=== PATIENT | female | born 1980 | race Caucasian/White ===

== ENCOUNTER 2019-05-22 19:07 | Emergency (ER) | payer OTHER ==
[~2019-05-22] VITALS: Ht 154.9 cm; Wt 58.5 kg
[2019-05-22] MEDS ORDERED: SINGULAIR 10MG10 MG (19:24)
[2019-05-22] MEDS ORDERED: OBSTETRIX DHA1 EACH (19:24)
[2019-05-22] MEDS ORDERED: CLARITIN10 M1 (19:24)
[2019-05-22] MEDS ORDERED: XOPENEX0.63 MG/3 (19:25)
[2019-05-22] MEDS ORDERED: PROVENTIL HFA6.7 GM (19:25)
== END 2019-05-22 22:42 | disposition home or self-care (01) ==
LOC: ER 19:07 → EDBD 19:08 → ER 22:42
DX: O26.892 Other specified pregnancy related conditions, second trimester (principal); R10.2 Pelvic and perineal pain; Z34.02 Encounter for supervision of normal first pregnancy, second trimester

== ENCOUNTER 2019-10-18 09:50 | Inpatient (IN) | payer OTHER ==
[~2019-10-18] VITALS: Ht 154.9 cm; Wt 72.6 kg
[~2019-10-18 09:50] MED LIST: CLARITIN10 M1; OBSTETRIX DHA1 EACH; PROVENTIL HFA6.7 GM; SINGULAIR 10MG10 MG; XOPENEX0.63 MG/3
[2019-11-10] MEDS ORDERED: NEXIUM20 M1 PO (15:39)
== END 2019-11-13 15:03 | disposition home or self-care (01) | DRG 807 ==
LOC: LDR 11-10 15:21 → OB/GYN 11-11 22:38
PROVIDERS: ADMIT Obstetrics & Gynecology Maternal & Fetal Medicine
PROC: 3E0P7VZ Introduction of Hormone into Female Reproductive, Via Natural or Artificial Opening (ICD-10-PCS; 2019-11-10)
PROC: 4A1HXCZ Monitoring of Products of Conception, Cardiac Rate, External Approach (ICD-10-PCS; 2019-11-10)
PROC: 10E0XZZ Delivery of Products of Conception, External Approach (ICD-10-PCS; principal; 2019-11-11)
PROC: 0KQM0ZZ Repair Perineum Muscle, Open Approach (ICD-10-PCS; 2019-11-11)
PROC: 3E033VJ Introduction of Other Hormone into Peripheral Vein, Percutaneous Approach (ICD-10-PCS; 2019-11-11)
DX: O70.1 Second degree perineal laceration during delivery (principal); Z37.0 Single live birth; Z3A.39 39 weeks gestation of pregnancy; Z22.330 Carrier of Group B streptococcus

== ENCOUNTER 2019-10-31 11:10 | Outpatient (CLI) | payer OTHER | END 2019-10-31 12:03 | disposition home or self-care (01) | LOC: NST 11:10 | DX: Z34.83 Encounter for supervision of other normal pregnancy, third trimester (principal) ==

== ENCOUNTER 2019-11-02 17:27 | Outpatient (CLI) | payer OTHER | END 2019-11-02 18:42 | disposition home or self-care (01) | LOC: NST 17:27 | DX: Z34.83 Encounter for supervision of other normal pregnancy, third trimester (principal) ==

== ENCOUNTER 2021-11-07 01:51 | Inpatient (IN) | payer OTHER ==
[~2021-11-07] VITALS: Ht 154.9 cm; Wt 68.9 kg
[~2021-11-07 01:51] MED LIST changes: +NEXIUM20 M1 PO
[2021-11-07] MEDS ORDERED: PEPCID AC20 MG PO (03:06)
[2021-11-07] MEDS ORDERED: IRON325 MG PO (03:07)
== END 2021-11-08 09:03 | disposition home or self-care (01) | DRG 833 ==
LOC: LDR 01:51
PROVIDERS: ADMIT Obstetrics & Gynecology; ATTEND Obstetrics & Gynecology
PROC: 4A1HXFZ Monitoring of Products of Conception, Cardiac Rhythm, External Approach (ICD-10-PCS; principal; 2021-11-07)
PROC: BY4FZZZ Ultrasonography of Third Trimester, Single Fetus (ICD-10-PCS; 2021-11-07)
DX: O47.03 False labor before 37 completed weeks of gestation, third trimester (principal); Z3A.31 31 weeks gestation of pregnancy

== ENCOUNTER 2021-11-14 09:07 | Outpatient (CLI) | payer OTHER ==
[~2021-11-14 09:07] MED LIST changes: +IRON325 MG PO; +PEPCID AC20 MG PO
== END 2021-11-14 09:51 | disposition home or self-care (01) ==
LOC: NST 09:07
PROVIDERS: ATTEND Obstetrics & Gynecology
DX: Z34.83 Encounter for supervision of other normal pregnancy, third trimester (principal)

== ENCOUNTER 2021-11-25 12:08 | Outpatient (CLI) | payer OTHER | END 2021-11-25 13:22 | disposition home or self-care (01) | LOC: NST 12:08 | PROVIDERS: ATTEND Obstetrics & Gynecology | DX: Z34.83 Encounter for supervision of other normal pregnancy, third trimester (principal) ==

== ENCOUNTER 2021-12-24 14:15 | Inpatient (IN) | payer OTHER ==
[~2021-12-24] VITALS: Ht 154.9 cm; Wt 73.9 kg
[2021-12-25] MEDS ORDERED: LEVALBUTER0.63 MG/3 (08:28)
[2021-12-25] MEDS ORDERED: CETIRIZINE HCL10 MG (08:28)
[2021-12-25] MEDS ORDERED: NIFEDIPINE ER30 M1 (08:29)
== END 2021-12-27 13:58 | disposition home or self-care (01) | DRG 807 ==
LOC: LDR 12-25 03:10 → OB/GYN 12-25 17:02
PROVIDERS: ADMIT Obstetrics & Gynecology; ATTEND Obstetrics & Gynecology
PROC: 10E0XZZ Delivery of Products of Conception, External Approach (ICD-10-PCS; principal; 2021-12-25)
PROC: 0KQM0ZZ Repair Perineum Muscle, Open Approach (ICD-10-PCS; 2021-12-25)
PROC: 4A1HXFZ Monitoring of Products of Conception, Cardiac Rhythm, External Approach (ICD-10-PCS; 2021-12-25)
DX: O70.1 Second degree perineal laceration during delivery (principal); Z37.0 Single live birth; O42.02 Full-term premature rupture of membranes, onset of labor within 24 hours of rupture; Z3A.38 38 weeks gestation of pregnancy